=== PATIENT | male | born 1975 | race Caucasian/White ===

== ENCOUNTER 2023-09-03 23:49 | Emergency (ER) | payer OTHER, SELFPAY ==
--- NOTE | 2023-09-04 | CT_ITS ---
Patient: GARY PETERSEN Facility:?[facility] Patient ID:?[id number] Site Patient ID:?[id number]. Site :?[id number] Study:?CT-Chest with 95cc [id number] PE Protocol-09/04/2023 5:14:40 AM Ordering Physician:Dexter Johnston Final Report: INDICATION: Chest pain. Clinical signs and symptoms of pulmonary embolus COMPARISON: None TECHNIQUE: : CT examination of the chest was performed with the uneventful intravenous administration of 95 cc of Isovue 370 while thin axial sections were obtained from above the apices of the lungs to the lung bases. Please note that all CT scans at this facility use dose modulation, iterative reconstruction, and/or weight-based dosing when appropriate to reduce radiation dose to as low as reasonably achievable. FINDINGS: : HEART and MEDIASTINUM: The heart size is normal. There is no mediastinal or hilar adenopathy or mass. There is no pericardial effusion.Small hiatal hernia. PULMONARY ARTERIAL CIRCULATION: There is no visible intraluminal filling defect to suggest pulmonary embolus. LUNGS: The lungs show no focal consolidation or mass. The airways appear normal. Patchy basilar atelectasis PLEURAL SPACES: There is no pleural effusion, pneumothorax or pleural based mass. VISUALIZED UPPER ABDOMEN: The limited visualized upper abdominal structures appear normal. OSSEOUS STRUCTURES: Age-appropriate appearance. No acute fracture or destructive process. TUBES and LINES: None. IMPRESSION: No evidence of pulmonary embolus. Trace basilar patchy atelectasis. Small hiatal hernia. Please note that all CT scans at this facility use dose modulation, iterative reconstruction, and/or weight-based dosing when appropriate to reduce radiation dose to as low as reasonably achievable. Dictated by Thomas Swann MD @ 09/04/2023 5:49:58 AM Signed by:?Thomas Swann MD @09/04/2023 5:49:58 AM (Electronic Signature)
[2023-09-04 00:23] VITALS: BP 134/78; PULSE 71; RESP 18; TEMP 37.3; O2SAT 98; BMI 26.8
--- NOTE | 2023-09-04 00:34 | ED.CHESTPAIN ---
HPI - Chest Pain General Time Seen by Provider: 00:34 Date Seen: 09/04/23 Chief Complaint: Chest Pain Stated Complaint: Chest pain Time Seen by Provider: 09/04/23 00:34 Source: patient and RN notes reviewed Mode of arrival: ambulatory Limitations: no limitations History of Present Illness HPI narrative: Robert is a 47-year-old gentleman previously healthy who comes to the emergency room for evaluation of chest pain. Patient noted the onset of a chest pain this morning while at work. This was on either side of his chest mainly on the left however with radiation into his left shoulder that he rated a 5/10. This was present throughout the morning but then did go away. This reoccurred this evening. He is now rating it at a 3/10 here but his states at home he was in significant discomfort. He recently did some heavy lifting but does not recall an injury. He is not short of breath nor nauseated with this discomfort. He cannot recreate the discomfort by moving his shoulder or neck. He notes that a year ago he did have similar symptoms and this resulted in an ambulance ride in ED visit where he told this was maybe a panic attack or a pulled muscle and he followed up with a stress test which was normal. Tonight symptoms seem to be worse than previously. Related Data Home Medications Medication Instructions Recorded Confirmed No Known Home Medications 09/04/23 09/04/23 Allergies Allergy/AdvReac Type Severity Reaction Status Date / Time No Known Drug Allergies Allergy Verified 09/04/23 00:26 Review of Systems Status of ROS Reports: 10 or more systems reviewed and unremarkable except as noted in History and below Const Denies: fever or chills ENMT Reports: neck pain (Left-sided radiation) Cardio Reports: chest pain and palpitations (Earlier today); Denies: swelling of feet/ankles, lightheadedness or shortness of breath with exertion Resp Denies: shortness of breath or cough GI Denies: abdominal pain, nausea or vomiting Musculo Reports: neck pain (Left-sided radiation) Neuro Denies: headache PFSH PFSH Social History Smoking Status: Never smoker Do you use any of these nicotine containing products: None How often do you have a drink containing alcohol: never AUDIT-C Alcohol total score: 0 Non-prescribed substance use: denies use Exam Narrative Exam Narrative: Alert and oriented. Seems somewhat frustrated. EOM is full. Face is symmetrical. Neck is supple without lymphadenopathy. Heart with regular rate and rhythm. I do not auscultate murmur or additional heart sounds. Lungs are clear bilaterally. Abdomen is soft nontender. Lower extremities without edema. Moving all extremities. Const Vital Signs, click to edit/add: Vital Signs - 24 hr 09/04/23 00:23 Temperature 99.1 F Pulse Rate [Pulse Oximeter] 71 Respiratory Rate 18 Blood Pressure [Right Upper Arm] 134/78 Pulse Oximetry 98 Oxygen Delivery Method Room Air Documenting provider has reviewed patient's vital signs: yes Course Course ED Course: At this time patient presents with chest pain radiating into left shoulder. He is not short of breath nor is he nauseated but this is a discomfort that was present for a while this morning at work and now has come back this evening. He does have recent stress test approximately a year ago that was reassuring and normal. At this time cannot rule out underlying cardiac cause. Certainly differential diagnosis includes but is not limited to acute coronary disease, angina, pericarditis, pneumonia, reflux, anxiety, musculoskeletal discomfort. Will place IV and draw CBC, comprehensive, CRP, troponin. Chest x-ray also ordered at this time. Plan on dose of Toradol if 1st cardiac enzyme and EKG are reassuring. Reevaluation(s) Reevaluation #1: Initial EKG and 1st troponin negative. Patient is given ibuprofen 600 mg as he does not have an IV in place. 2nd EKG and troponin her scheduled. Reevaluation #2: Patient has persisting pain even and 2nd EKG and troponin are reassuring. We spoke about CT as I am unable to reproduce patient's pain with palpation over the chest wall. He is receptive to this. Reevaluation #3: Third troponin is negative and thus we have done a troponin greater than [address] negative for PE or infiltrate or dissection. Vital Signs Vital signs: Initial Vital Signs Temperature 99.1 F 09/04/23 00:23 Temperature Source Temporal Artery Scan 09/04/23 00:23 Pulse Rate 71 09/04/23 00:23 Respiratory Rate 18 09/04/23 00:23 Blood Pressure 134/78 09/04/23 00:23 Blood Pressure Mean 96 09/04/23 00:23 Blood Pressure Position Sitting 09/04/23 00:23 Pulse Oximetry 98 09/04/23 00:23 Oxygen Delivery Method Room Air 09/04/23 00:23 Vital Signs Temperature 99.1 F 09/04/23 00:23 Pulse Rate 71 09/04/23 00:23 Respiratory Rate 18 09/04/23 00:23 Blood Pressure 134/78 09/04/23 00:23 Pulse Oximetry 98 09/04/23 00:23 Oxygen Delivery Method Room Air 09/04/23 00:23 Temperature 99.1 F 09/04/23 00:23 Pulse Rate 71 09/04/23 00:23 Respiratory Rate 18 09/04/23 00:23 Blood Pressure 134/78 09/04/23 00:23 Pulse Oximetry 98 09/04/23 00:23 Oxygen Delivery Method Room Air 09/04/23 00:23 Medications Administered Medications: Generic Name Dose Route Start Last Admin Trade Name Masood PRN Reason Stop Dose Admin Aspirin 324 mg 09/04/23 00:36 09/04/23 00:54 Aspirin 81 Mg Tab.Chew PO 09/04/23 00:37 324 mg ONCE ONE Administration Ketorolac Tromethamine 15 mg 09/04/23 01:28 09/04/23 05:38 Ketorolac 15 Mg/Ml Inj IVP 09/04/23 01:29 Not Given ONCE ONE MDM - Chest Pain MDM Narrative Medical decision making narrative: 1. Atypical chest pain-at this time no etiology noted of patient's chest pain. Troponins are negative x3 and EKGs are reassuring. Patient showed no evidence of ectopy or arrhythmia during his stay. White count as well as CRP within normal limits. Electrolytes reassuring and hemoglobin is normal. At this time certainly Robert could have anxiety and we have given him 1 mg of oral Ativan as we are awaiting CT results. 2. Disposition-home at this time. Rest. Note for work today. Recommend follow-up with primary MD for recheck of symptoms as well as scheduling of cardiac stress test. I do think it is worth establishing with therapist or counselor to learn skills of stress management. Return to the emergency room for worsening symptoms and as needed. Patient perhaps feels somewhat improved after oral Ativan. [address] is reassuring. We spoke of follow-up with primary MD and he is requesting a suggestions for a physician. As they live in [place] Dr. Scott would be a good choice or if they want to come the [place] Dr. Anderson or Ayad. Return to the ER for worsening symptoms. Medical Records Data Attestation: I reviewed the patient's medical records. Lab Data Attestation: I reviewed the patient's lab results. Labs: Lab Results 09/04/23 09/04/23 09/04/23 Range/Units 00:36 00:50 02:20 WBC 6.33 (4.50-11.00) K/uL RBC 4.63 (4.30-5.90) m/uL Hgb 14.0 (13.5-17.5) gm/dL Hct 41.5 (37.0-53.0) % MCV 90 (80-100) fL MCH 30 (26-34) pg MCHC 34 (32-36) gm/dL RDW Coeff of Mackenzie 11.9 (11.5-15.5) % Plt Count 264 (140-440) K/uL Neut % (Auto) 55.1 (42.0-72.0) % Lymph % (Auto) 28.6 (20-44) % [place] % (Auto) 14.4 H (0.0-11.0) % Eos % (Auto) 1.4 (0.0-7.0) % Baso % (Auto) 0.3 (0.0-3.0) % Neut # (Auto) 3.49 (1.7-7.0) K/uL Lymph # (Auto) 1.81 (0.90-2.90) K/uL [place] # (Auto) 0.90 (0.00-0.90) K/UL Eos # (Auto) 0.09 (0.00-0.50) K/uL Baso # (Auto) 0.02 (0.00-0.30) K/uL Abs Immat Gran (auto) 0.01 (0.00-0.30) K/uL Imm/Tot Granulo (auto) 0.2 % Sodium 139 (135-149) mmol/L Potassium 3.9 (3.6-5.1) mmol/L Chloride 105 (96-114) mmol/L Carbon Dioxide 27 (20-32) mmol/L Anion Gap 7 (7-15) mEq/L BUN 15 (5-24) mg/dL Creatinine 0.9 (0.5-1.5) mg/dL Estimated Creat Clear 123.23 Estimated GFR 105 ml/min Glucose 123 H (60-115) mg/dL Calcium 9.4 (8.4-10.6) mg/dL Total Bilirubin 0.7 (0.1-1.5) mg/dL AST 29 (12-35) U/L ALT 26 (4-50) U/L Alkaline Phosphatase 44 (40-150) U/L C-Reactive Protein 0.5 (0.5-1.0) mg/dL Total Protein 7.6 (6.0-8.3) g/dL Albumin 4.5 (3.3-5.0) g/dL POC Troponin I 0.00 L 0.00 L (0.01-0.04) ng/ml 09/04/23 Range/Units 04:35 WBC (4.50-11.00) K/uL RBC (4.30-5.90) m/uL Hgb (13.5-17.5) gm/dL Hct (37.0-53.0) % MCV (80-100) fL MCH (26-34) pg MCHC (32-36) gm/dL RDW Coeff of Mackenzie (11.5-15.5) % Plt Count (140-440) K/uL Neut % (Auto) (42.0-72.0) % Lymph % (Auto) (20-44) % [place] % (Auto) (0.0-11.0) % Eos % (Auto) (0.0-7.0) % Baso % (Auto) (0.0-3.0) % Neut # (Auto) (1.7-7.0) K/uL Lymph # (Auto) (0.90-2.90) K/uL [place] # (Auto) (0.00-0.90) K/UL Eos # (Auto) (0.00-0.50) K/uL Baso # (Auto) (0.00-0.30) K/uL Abs Immat Gran (auto) (0.00-0.30) K/uL Imm/Tot Granulo (auto) % Sodium (135-149) mmol/L Potassium (3.6-5.1) mmol/L Chloride (96-114) mmol/L Carbon Dioxide (20-32) mmol/L Anion Gap (7-15) mEq/L BUN (5-24) mg/dL Creatinine (0.5-1.5) mg/dL Estimated Creat Clear Estimated GFR ml/min Glucose (60-115) mg/dL Calcium (8.4-10.6) mg/dL Total Bilirubin (0.1-1.5) mg/dL AST (12-35) U/L ALT (4-50) U/L Alkaline Phosphatase (40-150) U/L C-Reactive Protein (0.5-1.0) mg/dL Total Protein (6.0-8.3) g/dL Albumin (3.3-5.0) g/dL POC Troponin I 0.00 L (0.01-0.04) ng/ml Imaging Data Chest x-ray: Attestation: I have reviewed the pertinent imaging results. Radiologist's impression: HEART and MEDIASTINUM: The heart size is normal. There is no mediastinal or hilar adenopathy or mass. There is no pericardial effusion.Small hiatal hernia. PULMONARY ARTERIAL CIRCULATION: There is no visible intraluminal filling defect to suggest pulmonary embolus. LUNGS: The lungs show no focal consolidation or mass. The airways appear normal. Patchy basilar atelectasis PLEURAL SPACES: There is no pleural effusion, pneumothorax or pleural based mass. VISUALIZED UPPER ABDOMEN: The limited visualized upper abdominal structures appear normal. OSSEOUS STRUCTURES: Age-appropriate appearance. No acute fracture or destructive process. TUBES and LINES: None. IMPRESSION: No evidence of pulmonary embolus. Trace basilar patchy atelectasis. Small hiatal hernia. ECG Data Attestation: I personally reviewed and interpreted this ECG as follows: ECG interpretation date: 09/04/23 ECG interpretation time: 00:39 Interpretation: EKG by my read shows sinus rhythm at a rate of 70. Isolated T-wave flattening noted in 3. QT and SC intervals within normal limits. Second EKG by my read shows heart rate in the 50s with early repolarization but no evidence of ST or T-wave changes. Discharge Plan Discharge Clinical Impression: Atypical chest pain Patient Disposition: Home, Self-Care Condition: Improved Additional Instructions: Note for work today. Recommend follow-up with primary MD for recheck of symptoms as well as scheduling of cardiac stress test. I do think it is worth establishing with therapist or counselor to learn skills of stress management. Return to the emergency room for worsening symptoms and as needed. Prescriptions: No Action No Known Home Medications Follow Up/Referrals: Provider,Not a Local [Primary Care Provider] - Stand Alone Forms: [employer] Medical Info Instructions
--- NOTE | 2023-09-04 00:36 | CRLHL7_ITS ---
For Patients: As a result of the Cures Act, medical imaging exams and procedure reports are released immediately into your electronic medical record. You may view this report before your referring provider. If you have questions, please contact your health care provider. INDICATION: Chest pain TECHNIQUE: Chest radiograph 1 view on 2 films COMPARISON: None FINDINGS: Mediastinum: The mediastinum is normal in appearance. The heart silhouette is normal in size and morphology. Lung: Both lungs are unremarkable in appearance. No sign of pleural effusion seen. No pneumothorax is identified. Bone and Soft tissue: Unremarkable for age. IMPRESSION: 1. No acute cardiopulmonary disease is seen. Dictated by: Scott Huang MD @ 09/04/2023 01:50:35 (Electronically Signed)
[2023-09-04] MEDS: ASPIRIN 81 MG TAB.CHEW 324 MG PO (00:54)
[2023-09-04 00:59] LABS: Basophils Absolute Auto 0.02 K/uL (0.00-0.30); Basophils Percent Auto 0.3 % (0.0-3.0); Eosinophils Absolute Auto 0.09 K/uL (0.00-0.50); Eosinophils Percent Auto 1.4 % (0.0-7.0); Hematocrit 41.5 % (37.0-53.0); Immature Granulocytes Abs Auto 0.01 K/uL (0.00-0.30); Immature Granulocytes Pct Auto 0.2 %; Lymphocytes Absolute Auto 1.81 K/uL (0.90-2.90); Lymphocytes Percent Auto 28.6 % (20-44); Mean Corpuscular HGB Conc 34 gm/dL (32-36); Mean Corpuscular Hemoglobin 30 pg (26-34); Mean Corpuscular Volume 90 fL (80-100); Monocytes Percent Auto 14.4 % (0.0-11.0); Neutrophils Absolute Auto 3.49 K/uL (1.7-7.0); Neutrophils Percent Auto 55.1 % (42.0-72.0); Platelet Count* 264 K/uL (140-440); RDW Coefficient of Variation % 11.9 % (11.5-15.5); Red Blood Count 4.63 m/uL (4.30-5.90); White Blood Count* 6.33 K/uL (4.50-11.00)
[2023-09-04 01:04] LABS: Slide Review Reflex No
[2023-09-04 01:08] LABS: Albumin* 4.5 g/dL (3.3-5.0); Chloride* 105 mmol/L (96-114)
[2023-09-04 01:09] LABS: Potassium* 3.9 mmol/L (3.6-5.1); Sodium* 139 mmol/L (135-149)
[2023-09-04 01:11] LABS: Creatinine* 0.9 mg/dL (0.5-1.5); Est. Creatinine Clearance* 123.23; Estimated Glomerular Filt Rate 105 ml/min
[2023-09-04 01:12] LABS: Alanine Aminotransferase* 26 U/L (4-50); Alkaline Phosphatase* 44 U/L (40-150); Anion Gap 7 mEq/L (7-15); Aspartate Amino Transferase* 29 U/L (12-35); Bilirubin Total* 0.7 mg/dL (0.1-1.5); Blood Urea Nitrogen* 15 mg/dL (5-24); Calcium* 9.4 mg/dL (8.4-10.6); Carbon Dioxide* 27 mmol/L (20-32); Glucose* 123 mg/dL (60-115); Total Protein* 7.6 g/dL (6.0-8.3)
[2023-09-04 01:15] LABS: C Reactive Protein* 0.5 mg/dL (0.5-1.0)
[2023-09-04 02:00] VITALS: BP 136/74; PULSE 64; RESP 16; O2SAT 98
[2023-09-04] MEDS: IBUPROFEN 200 MG TABLET 600 MG PO (02:00)
[2023-09-04 04:00] VITALS: BP 144/92; PULSE 69; RESP 16; O2SAT 98
[2023-09-04] MEDS: LORazepam 1 MG TABLET PO (05:17)
[2023-09-04 06:01] VITALS: BP 124/69; PULSE 67; RESP 16
[2023-09-04 06:15] VITALS: O2SAT 98
== END 2023-09-04 06:05 | disposition home or self-care (01) ==
PROVIDERS: Emergency Provider Family Medicine
DX: R07.89 Other chest pain (principal)
CPT/HCPCS: 36415; 71045; 71275; 80053; 84484; 85025; 86140; 93005; 94761; 95992; 99284; 99285; A9270; Q9967